=== PATIENT | female | born 1960 | race Asian ===

== ENCOUNTER 2018-12-23 09:53 | Emergency (ER) | payer MEDICAID ==
[~2018-12-23] VITALS: Ht 157.5 cm; Wt 60.0 kg
[2018-12-23] MEDS ORDERED: SODIUM CHLORIDE 0.9% 1,000 ML IV ONE (10:52)
[2018-12-23] MEDS ORDERED: KETOROLAC 30MG/ML VIAL IV STA (10:52)
[2018-12-23 11:49] LABS: BASOPHILS % 0.4 % (0.0-2.0); EOSINOPHILS % 1.2 % (0.0-5.0); HEMATOCRIT. 42.6 % (36.0-48.0); HEMOGLOBIN. 14.1 g/dL (12.0-16.0); LYMPHOCYTES % 20.9 % (20.0-50.0); MEAN CORPUSCULAR HEMOGLOBIN 29.1 pg (28.0-32.0); MONOCYTES % 7.9 % (2.0-8.0); NEUTROPHILS % 69.6 % (40.0-76.0); PLATELET 249 x1000/uL (130-400); RED BLOOD CELL COUNT 4.83 mill/uL (4.2-5.4); RED CELL DISTRIBUTION WIDTH 13.7 % (11.6-14.6)
[2018-12-23 11:55] LABS: CHLORIDE 106 mEq/L (98-107)
[2018-12-23 11:57] LABS: PARTIAL THROMBOPLASTIN TIME 31.3 sec (23.4-31.0)
[2018-12-23] MEDS ORDERED: IOHEXOL-300 100 ML BOTTLE ONE (13:23)
[2018-12-23 13:40] LABS: CLARITY URINE CLEAR (CLEAR); COLOR URINE YELLOW (YELLOW); KETONES URINE TRACE (NEGATIVE); LEUKOCYTE ESTERASE URINE NEGATIVE (NEGATIVE); NITRITE URINE NEGATIVE (NEGATIVE); OCCULT BLOOD URINE NEGATIVE (NEGATIVE); PROTEIN URINE NEGATIVE (NEGATIVE); SPECIFIC GRAVITY URINE 1.078 (1.005-1.030); UROBILINOGEN URINE 0.2 E.U./dL (0.2-1.0)
[2018-12-23 17:32] VITALS: BP 110/69
== END 2018-12-23 17:32 | disposition home or self-care (01) ==
LOC: ER 09:53
DX: K80.20 Calculus of gallbladder without cholecystitis without obstruction (principal)
CPT/HCPCS: 36415; 74177; 76705; 80053; 81003; 83690; 85025; 85610; 85730; 96361; 96374; 99284; J1885; J7030; Q9967; Z7610